=== PATIENT | female | born 1985 | race Caucasian/White ===

== ENCOUNTER 2016-03-31 20:09 | Emergency (ER) | payer OTHER ==
--- NOTE | 2016-03-31 22:35 | ED NURSING NOTES ---
Clinical Report - Nurses [facility] [address] [place] [address] 03/31/2016 20:12 Patient: MAKEDA CLAYTON TRIAGE Triage time 2045 PM. Chief Complaint: HEADACHE and MIGRAINE HEADACHE. --21:00 Jem Finney R.N. 20:58 03/31/16. BP: 108/68. HR: 78. RR: 16. O2 saturation: 97% on room air. Temp: 98.6 F (oral). Pain level now: 12/29. --21:00 Jem Finney R.N. Weight: 66.6 kg stated. Height/Length: 66 inches Per Patient. BMI: 23.7. --22:32 Jem Finney R.N. Medications None. --21:00 Jem Finney R.N. Allergies No Known Drug Allergy. --21:00 Jem Finney R.N. History Arrived by private vehicle. Historian: patient. Accompanied by family. This started ABOUT 4 DAYS AGO. ( Patient presents to the ED with symptoms of a migraine headache. Patient states that she normally gets headaches like this 3 times a week, but this headache is not going away. Patient also reports that she has had a sore throat/cough beginning on Wednesday.). She has had weakness and sinus pain. --21:00 Jem Finney R.N. PHYSICAL ASSESSMENT Ambulatory to room. GENERAL / NEURO / PSYCH: Alert. Oriented X 4. Appears in no acute distress. She appears uncomfortable. Speech within normal limits. ( Patient reports headache x 4 days. Patient states that she normally get's migraines, but states that the headache normally improves with Tylenol.). HEENT: No facial asymmetry noted. Right frontal and left frontal sinus tenderness present (reports congestion and sinus tenderness since Wednesday). Photophobia present. Pupils equal, round and reactive to light. Runny nose. RESPIRATORY: Respirations not labored. Breath sounds within normal limits. CVS: Capillary refill less than 2 seconds. GI / : Abdomen soft and nontender. SKIN: Skin is warm and dry. --22:36 Jem Finney R.N. NURSING PROGRESS NOTES 21:03/31/2016 Ondansetron ODT PO Oral Disintegrating Tablets 4 mg given. Allergies verified and confirmed 5 rights. --21:27 Jem Finney R.N. 21:03/31/2016 Haloperidol IM 2 mg given. Given in the right deltoid. Allergies verified, confirmed 5 rights and sedative warning given to the patient. --21:31 Jem Finney R.N. 21:03/31/2016 Toradol (Ketorolac Tromethamine) IM 60 mg given. Given in the left deltoid. Allergies verified and confirmed 5 rights. --21:31 Jem Finney R.N. 22:27 03/31/16. Care transferred and report received (from [facility] [place]). --22:27 Ludy Downey R.N. Head of bed elevated. The patient is calm and resting quietly. Overall patient status is improved. GENERAL / NEURO / PSYCH: Alert. Oriented X 4. HEENT: Pupils equal, round and reactive to light. RESPIRATORY: No respiratory distress. SKIN: Skin is warm and dry. Skin color within normal limits. Call light placed in reach. Side rails up x 1. Bed placed in lowest position. Brakes of bed on. Care transferred and report given ([facility] [place]). --22:33 Jem Finney R.N. Patient waiting for evaluation and lab results. --22:33 Jem Finney R.N. DISPOSITION / DISCHARGE 22:49 03/31/16. Condition at departure: improved and stable. The goals identified in the patient's plan of care were met. No learning barriers present. Discharge instructions provided and reviewed with the patient. Reviewed medication(s) (continue home meds). Reviewed referral to a primary care physician for followup. Patient verbalized understanding. Written instructions provided in Jamaican. The patient was discharged home and accompanied by coating machine operator. She left the Emergency Department ambulatory and via private vehicle. Grinding Supervisor driving. --22:51 Ludy Downey R.N. 22:49 03/31/16. BP: 111/78. HR: 84. RR: 15. O2 saturation: 100%. Temp: 98.6 F. Pain level now 05/01. --22:51 Ludy Downey R.N. Departure time: 22:50 Mar 31 2016. --22:51 Ludy Downey R.N. Locked/Released at 03/31/2016 23:06 by Ludy Downey R.N.
--- NOTE | 2016-03-31 22:35 | ED CLINICAL REPORT ---
Clinical Report - Physicians/Mid Levels [facility] [address] [place] [address] 03/31/2016 20:12 Patient: MAKEDA CLAYTON Time Seen: 20:53. Arrived- By private vehicle. Historian- patient. HISTORY OF PRESENT ILLNESS Chief Complaint: HEADACHE. Is still present. This started about 4 days ago. It was gradual in onset and has been constant and waxing/waning. Onset during light activity. It is described as "aching and pounding". Quality described as unlike previous headaches. Described as a global headache, located in the left hemicranial region and has had neck pain. Not located in the facial region. At its maximum, severity described as 10 / 10. When seen in the E.D., severity described as 7 / 10. Modifying factors: worsened by bright light, noise and physical exertion; relieved by rest, quiet room and dark room. The patient has had photophobia, nausea and generalized weakness. No preceding symptoms or vomiting. Similar symptoms previously: Varying in intensity. REVIEW OF SYSTEMS No carbon monoxide exposure or urinary problems. She has had chills (2 days ago). She has had fever (2 days ago). She has had nasal congestion and muscle aches. She has experienced moderate sweats. (2 days ago). She has had a mild cough productive of green sputum. She has had abnormal bleeding (last month). All systems otherwise negative, except as recorded above. PAST HISTORY PCP - [facility]. Medications: None. Allergies: Penicillins. SOCIAL HISTORY Current every day heavy tobacco smoker (cigarette)- less than 1 pack per day. No alcohol use or drug use. Residence: [place]. FAMILY HISTORY No history of migraine headaches. Cancer in first-degree relative (mother). ADDITIONAL NOTES The nursing notes have been reviewed. PHYSICAL EXAM Vital Signs: 03/31/2016 20:58 BP: 108/68. HR: 78. RR: 16. O2 saturation: 97%. Temp: 98.6 F. Pain level now: 12/29. Have been reviewed. Appearance: Alert. Eyes: Photophobia present. Pupils equal, round and reactive to light. ENT: Ears normal. Pharynx normal. Neck: Normal inspection. Neck supple. CVS: Normal heart rate and rhythm. Heart sounds normal. Respiratory: No respiratory distress. Breath sounds normal. Abdomen: Soft and nontender. No organomegaly. Back: Normal inspection. Skin: Normal skin color. Extremities: Extremities exhibit normal ROM. No calf tenderness. No lower extremity edema. Neuro: Oriented X 3. Alert. Mood/affect normal. Speech normal. Cranial nerves normal (as tested). No cerebellar findings. No motor deficit. No sensory deficit. PROGRESS AND PROCEDURES Patient/family counseled. Old medical records ordered. Old records unavailable. Disposition: Discharged. Condition: stable. CLINICAL IMPRESSION Acute migraine headache without aura. INSTRUCTIONS No driving or operating machinery while taking medication. Sedative medication was given during your visit. Warnings: Further evaluation is necessary. GENERAL WARNINGS: Return or contact your physician immediately if your condition worsens or changes unexpectedly, if not improving as expected, or if other problems arise. Follow-up: Follow up with your doctor tomorrow. Call for the next available appointment. Follow up with a neurologist- as recommended by your primary care physician. Call for an appointment. Understanding of the discharge instructions verbalized by patient and family. (Electronically signed by David Tubbs MD 04/03/2016 18:51)
--- NOTE | 2016-03-31 22:35 | ED ORDER SUMMARY ---
..... Patient: MAKEDA CLAYTON OrderSheet [facility] VisitID: [id number] [place] [address] 30y, F Registration Date/Time: 03/31/2016 ORDER SHEET Weight: 66.6 kg (stated) Allergies: Penicillins GENERAL ORDERS: Rapid Influenza Screen (Nasal Pharyngeal) (PROCESSOR HELPER) Urgent (21:18 03/31/2016 Heather GREENBERG) (Ack 21:31 NHouse ER Tech1) (22:21 NHouse ER Tech1) MEDICATION ORDERS: Toradol IM 60 mg (NOW) (21:19 03/31/2016 Heather GREENBERG) (21:31 HOShaughnessy R.N.) Haloperidol IM 2 mg (HIGH ALERT MEDICATION, NOW) (21:19 03/31/2016 Heather GREENBERG) (21:31 HOShaughnessy R.N.) Ondansetron ODT PO 4 mg (NOW) (21:20 03/31/2016 Heather GREENBERG) (21:27 HOShaughnessy R.N.) IV FLUIDS: ORDER SHEET NOTES: [Electronically signed by Ludy Downey R.N. (23:06 03/31/2016)] [Electronically signed by David Tubbs MD (18:51 04/03/2016)] [Electronically locked/signed by Ludy Downey R.N. (23:06 03/31/2016)]
--- NOTE | 2016-03-31 22:35 | ED NURSING NOTES ---
Clinical Report - Nurses [facility] [address] [place] [address] 03/31/2016 20:12 Patient: MAKEDA CLAYTON TRIAGE Triage time 2045 PM. Chief Complaint: HEADACHE and MIGRAINE HEADACHE. --21:00 Jem Finney R.N. 20:58 03/31/16. BP: 108/68. HR: 78. RR: 16. O2 saturation: 97% on room air. Temp: 98.6 F (oral). Pain level now: 12/29. --21:00 Jem Finney R.N. Weight: 66.6 kg stated. Height/Length: 66 inches Per Patient. BMI: 23.7. --22:32 Jem Finney R.N. Medications None. --21:00 Jem Finney R.N. Allergies No Known Drug Allergy. --21:00 Jem Finney R.N. History Arrived by private vehicle. Historian: patient. Accompanied by family. This started ABOUT 4 DAYS AGO. ( Patient presents to the ED with symptoms of a migraine headache. Patient states that she normally gets headaches like this 3 times a week, but this headache is not going away. Patient also reports that she has had a sore throat/cough beginning on Wednesday.). She has had weakness and sinus pain. --21:00 Jem Finney R.N. PHYSICAL ASSESSMENT Ambulatory to room. GENERAL / NEURO / PSYCH: Alert. Oriented X 4. Appears in no acute distress. She appears uncomfortable. Speech within normal limits. ( Patient reports headache x 4 days. Patient states that she normally get's migraines, but states that the headache normally improves with Tylenol.). HEENT: No facial asymmetry noted. Right frontal and left frontal sinus tenderness present (reports congestion and sinus tenderness since Wednesday). Photophobia present. Pupils equal, round and reactive to light. Runny nose. RESPIRATORY: Respirations not labored. Breath sounds within normal limits. CVS: Capillary refill less than 2 seconds. GI / : Abdomen soft and nontender. SKIN: Skin is warm and dry. --22:36 eJm Finney R.N. NURSING PROGRESS NOTES 21:03/31/2016 Ondansetron ODT PO Oral Disintegrating Tablets 4 mg given. Allergies verified and confirmed 5 rights. --21:27 Jem Finney R.N. 21:03/31/2016 Haloperidol IM 2 mg given. Given in the right deltoid. Allergies verified, confirmed 5 rights and sedative warning given to the patient. --21:31 Jem Finney R.N. 21:03/31/2016 Toradol (Ketorolac Tromethamine) IM 60 mg given. Given in the left deltoid. Allergies verified and confirmed 5 rights. --21:31 Jem Finney R.N. 22:27 03/31/16. Care transferred and report received (from [facility]). --22:27 Ludy Downey R.N. Head of bed elevated. The patient is calm and resting quietly. Overall patient status is improved. GENERAL / NEURO / PSYCH: Alert. Oriented X 4. HEENT: Pupils equal, round and reactive to light. RESPIRATORY: No respiratory distress. SKIN: Skin is warm and dry. Skin color within normal limits. Call light placed in reach. Side rails up x 1. Bed placed in lowest position. Brakes of bed on. Care transferred and report given ([facility] [place]). --22:33 Jem Finney R.N. Patient waiting for evaluation and lab results. --22:33 Jem Finney R.N. DISPOSITION / DISCHARGE 22:49 03/31/16. Condition at departure: improved and stable. The goals identified in the patient's plan of care were met. No learning barriers present. Discharge instructions provided and reviewed with the patient. Reviewed medication(s) (continue home meds). Reviewed referral to a primary care physician for followup. Patient verbalized understanding. Written instructions provided in Salvadorean. The patient was discharged home and accompanied by commercial leasing agent. She left the Emergency Department ambulatory and via private vehicle. Septic Technician driving. --22:51 Ludy Downey R.N. 22:49 03/31/16. BP: 111/78. HR: 84. RR: 15. O2 saturation: 100%. Temp: 98.6 F. Pain level now 05/01. --22:51 Ludy Downey R.N. Departure time: 22:50 Mar 31 2016. --22:51 Ludy Downey R.N. Locked/Released at 03/31/2016 23:06 by Ludy Downey R.N.
--- NOTE | 2016-03-31 22:35 | ED ORDER SUMMARY ---
..... Patient: MAKEDA CLAYTON OrderSheet [facility] VisitID: [id number] [place] [address] 30y, F Registration Date/Time: 03/31/2016 ORDER SHEET Weight: 66.6 kg (stated) Allergies: Penicillins GENERAL ORDERS: Rapid Influenza Screen (Nasal Pharyngeal) (CHIEF OF PRODUCTION) Urgent (21:18 03/31/2016 Heather GREENBERG) (Ack 21:31 NHouse ER Tech1) (22:21 NHouse ER Tech1) MEDICATION ORDERS: Toradol IM 60 mg (NOW) (21:19 03/31/2016 Heather GREENBERG) (21:31 HOShaughnessy R.N.) Haloperidol IM 2 mg (HIGH ALERT MEDICATION, NOW) (21:19 03/31/2016 Heather GREENBERG) (21:31 HOShaughnessy R.N.) Ondansetron ODT PO 4 mg (NOW) (21:20 03/31/2016 Heather GREENBREG) (21:27 HOShaughnessy R.N.) IV FLUIDS: ORDER SHEET NOTES: [Electronically signed by Ludy Downey R.N. (23:06 03/31/2016)] [Electronically signed by David Tubbs MD (18:51 04/03/2016)] [Electronically locked/signed by Ludy Downey R.N. (23:06 03/31/2016)]
--- NOTE | 2016-03-31 22:35 | ED CLINICAL REPORT ---
Clinical Report - Physicians/Mid Levels [facility] [address] [place] [address] 03/31/2016 20:12 Patient: MAKEDA CLAYTON Time Seen: 20:53. Arrived- By private vehicle. Historian- patient. HISTORY OF PRESENT ILLNESS Chief Complaint: HEADACHE. Is still present. This started about 4 days ago. It was gradual in onset and has been constant and waxing/waning. Onset during light activity. It is described as "aching and pounding". Quality described as unlike previous headaches. Described as a global headache, located in the left hemicranial region and has had neck pain. Not located in the facial region. At its maximum, severity described as 10 / 10. When seen in the E.D., severity described as 7 / 10. Modifying factors: worsened by bright light, noise and physical exertion; relieved by rest, quiet room and dark room. The patient has had photophobia, nausea and generalized weakness. No preceding symptoms or vomiting. Similar symptoms previously: Varying in intensity. REVIEW OF SYSTEMS No carbon monoxide exposure or urinary problems. She has had chills (2 days ago). She has had fever (2 days ago). She has had nasal congestion and muscle aches. She has experienced moderate sweats. (2 days ago). She has had a mild cough productive of green sputum. She has had abnormal bleeding (last month). All systems otherwise negative, except as recorded above. PAST HISTORY PCP - [facility]. Medications: None. Allergies: Penicillins. SOCIAL HISTORY Current every day heavy tobacco smoker (cigarette)- less than 1 pack per day. No alcohol use or drug use. Residence: [place]. FAMILY HISTORY No history of migraine headaches. Cancer in first-degree relative (mother). ADDITIONAL NOTES The nursing notes have been reviewed. PHYSICAL EXAM Vital Signs: 03/31/2016 20:58 BP: 108/68. HR: 78. RR: 16. O2 saturation: 97%. Temp: 98.6 F. Pain level now: 12/29. Have been reviewed. Appearance: Alert. Eyes: Photophobia present. Pupils equal, round and reactive to light. ENT: Ears normal. Pharynx normal. Neck: Normal inspection. Neck supple. CVS: Normal heart rate and rhythm. Heart sounds normal. Respiratory: No respiratory distress. Breath sounds normal. Abdomen: Soft and nontender. No organomegaly. Back: Normal inspection. Skin: Normal skin color. Extremities: Extremities exhibit normal ROM. No calf tenderness. No lower extremity edema. Neuro: Oriented X 3. Alert. Mood/affect normal. Speech normal. Cranial nerves normal (as tested). No cerebellar findings. No motor deficit. No sensory deficit. PROGRESS AND PROCEDURES Patient/family counseled. Old medical records ordered. Old records unavailable. Disposition: Discharged. Condition: stable. CLINICAL IMPRESSION Acute migraine headache without aura. INSTRUCTIONS No driving or operating machinery while taking medication. Sedative medication was given during your visit. Warnings: Further evaluation is necessary. GENERAL WARNINGS: Return or contact your physician immediately if your condition worsens or changes unexpectedly, if not improving as expected, or if other problems arise. Follow-up: Follow up with your doctor tomorrow. Call for the next available appointment. Follow up with a neurologist- as recommended by your primary care physician. Call for an appointment. Understanding of the discharge instructions verbalized by patient and family. (Electronically signed by David Tubbs MD 04/03/2016 18:51)
--- NOTE | 2016-04-03 18:51 | ED MED RECONCILIATION SUMMARY ---
Patient: MAKEDA CLAYTON Medication Reconciliation Report [facility] VisitID: [id number] [address] [place] [address] 30y, F Registration Date/Time: 03/31/2016 Weight: 66.6 kg Height/Length: 66 in. BMI: 23.7 ALLERGIES: Penicillins The patient's Home Medications are listed below: NONE. The source(s) of the original Home Medication information: Not obtained. The following Medications were given to the patient in the Emergency Department: Ondansetron ODT [PO] PO 4 mg, administered: 03/31/2016 9:27:00 PM Haloperidol [IM] IM 2 mg, administered: 03/31/2016 9:31:00 PM Toradol [IM] IM 60 mg, administered: 03/31/2016 9:31:00 PM The following Medications were prescribed to the patient: None.
--- NOTE | 2016-04-03 18:51 | ED MAR SUMMARY ---
..... Medication Administration Record [facility] [address] [place] [address] Patient: MAKEDA CLAYTON Visit ID: [id number] 30y, F Weight: 66.6 kg Height/Length: 66 in BMI: 23.7 ALLERGIES: Penicillins Given 21:03/31/2016 Jem Finney, RAnishaNAnisha Medication Administered: ONDANSETRON ODT [PO], Dose: 4 mg Oral Disintegrating Tablets PO. Medication Ordered: Ondansetron ODT PO 4 mg (NOW). Given 21:03/31/2016 Jem Finney, RAnishaN. Medication Administered: TORADOL [IM] (KETOROLAC TROMETHAMINE), Dose: 60 mg IM. Medication Ordered: Toradol IM 60 mg (NOW). Given 21:03/31/2016 Jem Finney, R.N. Medication Administered: HALOPERIDOL [IM], Dose: 2 mg IM. Medication Ordered: Haloperidol IM 2 mg (HIGH ALERT MEDICATION, NOW).
--- NOTE | 2016-04-03 18:51 | ED MAR SUMMARY ---
..... Medication Administration Record [facility] [address] [place] [address] Patient: MAKEDA CLAYTON Visit ID: [id number] 30y, F Weight: 66.6 kg Height/Length: 66 in BMI: 23.7 ALLERGIES: Penicillins Given 21:03/31/2016 Jem Finney, RAnishaNAnisha Medication Administered: ONDANSETRON ODT [PO], Dose: 4 mg Oral Disintegrating Tablets PO. Medication Ordered: Ondansetron ODT PO 4 mg (NOW). Given 21:03/31/2016 Jem Finney, RAnishaN. Medication Administered: TORADOL [IM] (KETOROLAC TROMETHAMINE), Dose: 60 mg IM. Medication Ordered: Toradol IM 60 mg (NOW). Given 21:03/31/2016 Jem Finney, R.N. Medication Administered: HALOPERIDOL [IM], Dose: 2 mg IM. Medication Ordered: Haloperidol IM 2 mg (HIGH ALERT MEDICATION, NOW).
--- NOTE | 2016-04-03 18:51 | ED MED RECONCILIATION SUMMARY ---
Patient: MAKEDA CLAYTON Medication Reconciliation Report [facility] VisitID: [id number] [address] [place] [address] 30y, F Registration Date/Time: 03/31/2016 Weight: 66.6 kg Height/Length: 66 in. BMI: 23.7 ALLERGIES: Penicillins The patient's Home Medications are listed below: NONE. The source(s) of the original Home Medication information: Not obtained. The following Medications were given to the patient in the Emergency Department: Ondansetron ODT [PO] PO 4 mg, administered: 03/31/2016 9:27:00 PM Haloperidol [IM] IM 2 mg, administered: 03/31/2016 9:31:00 PM Toradol [IM] IM 60 mg, administered: 03/31/2016 9:31:00 PM The following Medications were prescribed to the patient: None.
--- NOTE | 2016-04-03 18:51 | ED DISCHARGE INSTRUCTIONS ---
Patient: MAKEDA CLAYTON General Instructions [facility] VisitID: [id number] [place] [address] 30y, F Registration Date/Time: 03/31/2016 Acute migraine headache without aura. INSTRUCTIONS No driving or operating machinery while taking medication. Sedative medication was given during your visit. Warnings: Further evaluation is necessary. GENERAL WARNINGS: Return or contact your physician immediately if your condition worsens or changes unexpectedly, if not improving as expected, or if other problems arise. Follow-up: Follow up with your doctor tomorrow. Call for the next available appointment. Follow up with a neurologist- as recommended by your primary care physician. Call for an appointment. Understanding of the discharge instructions verbalized by patient and family. ADDITIONAL INFORMATION Migraine Headache Migraine headaches are related to changes in blood flow to the brain. This causes throbbing or constant pain on one or both sides of the head. The pain may last from a few hours to several days. There is usually nausea, vomiting, sensitivity to light and sound, and blurred vision. A migraine attack may be triggered by emotional stress, hormone changes during the menstrual cycle, oral contraceptives, alcohol use, certain foods containing tyramine, eye strain, weather changes, missing meals, or too little or too much sleep. Home Care For This Headache: 1) If you were given pain medicine for this headache, do not drive yourself home . Arrange for a ride, instead. When you get home, try to sleep. You should feel much better when you wake up. 2) Migraine headaches may improve with an ice pack on the forehead or at the base of the skull. Heat to the back of your neck may relieve any neck spasm. 3) Drink only clear liquids or eat a very light diet to avoid nausea/vomiting until symptoms improve. Preventing Future Headaches: 1) Pay attention to those factors that seem to trigger your headache. Try to avoid them when you can. If you have frequent headaches, it is useful to keep a diary of what you were doing, feeling or eating in the hours before each attack. Show this to your doctor to help find the cause of your headaches. a) If you feel that stress is a factor in your headaches, look at the sources of stress in your life. Find ways to release the build-up of those stresses by using regular exercise, relaxation methods (yoga, meditation), bio-feedback or simply taking time-out for yourself. For more information about this, consult your doctor or go to a local bookstore and review books and tapes on this subject. b) Tyramine is a substance present in the following foods : chocolate, yogurt, all cheeses except cottage cheese and cream cheese. smoked or pickled fish and meat (including fraire, caviar, bologna, pepperoni, salami), liver, avocados, bananas, figs, raisins, and red wine. Be aware that these foods may trigger a migraine in some persons. Try taking these foods out of your diet for 1-2 months to see if this reduces headache frequency. Treating Future Attacks: 1) At the first sign of a headache, take time out if possible. Find a quiet, dark, comfortable place to sit or lie down. Let yourself relax or sleep. 2) An ice pack on the forehead or area of greatest pain may help. If you are having muscle spasm and tightness of the neck, a heating pad and massage to this area may be helpful. 3) If you have been prescribed a medicine to stop a migraine headache, use this at the very first warning sign of the headache (aura or initial pain) for best results. Follow Up with your doctor if the headache is not better within the next 24 hours. If you have frequent headaches you should discuss a treatment plan with your primary care doctor. Ask if you can have medicine to take at home the next time you get a bad headache. Poorly controlled chronic headaches may require a referral to a neurologist (headache specialist). Get Prompt Medical Attention if any of the following occur: Your head pain gets worse, or does not improve within 24 hours Repeated vomiting (cant keep liquids down) Sinus or ear or throat pain (not already reported) Fever of 100.4 F (38 C) or higher, or as directed by your healthcare provider Stiff neck Extreme drowsiness, confusion or fainting Dizziness, vertigo (dizziness with spinning sensation) Weakness of an arm or leg or one side of the face Difficulty with speech or vision You have been given the following additional information: Headache, Migraine (Classical) No driving or operating machinery while taking medication. Sedative medication was given during your visit. (Electronically signed by David Tubbs MD 04/03/2016 18:51)
== END 2016-03-31 22:37 | disposition home or self-care (01) ==
LOC: ED SRH 20:09
DX: G43.009 Migraine without aura, not intractable, without status migrainosus (principal); F17.210 Nicotine dependence, cigarettes, uncomplicated; Z88.0 Allergy status to penicillin
CPT/HCPCS: 91400